=== PATIENT | female | born 1980 | race Two or more races ===

== ENCOUNTER 2020-02-06 22:26 | Emergency (ER) | payer SELFPAY ==
[~2020-02-06] VITALS: Ht 165.1 cm; Wt 65.0 kg
[2020-02-06] MEDS ORDERED: HYDROCODONE/ACETAMINOPHEN 10/325MG TABLET PO ONE (23:15)
[2020-02-07 04:28] VITALS: BP 121/81
== END 2020-02-07 04:32 | disposition home or self-care (01) ==
LOC: ER 22:26
DX: S93.401A Sprain of unspecified ligament of right ankle, initial encounter (principal); S80.02XA Contusion of left knee, initial encounter; S60.222A Contusion of left hand, initial encounter; S40.012A Contusion of left shoulder, initial encounter; Z88.2 Allergy status to sulfonamides; V49.88XA Car occupant (driver) (passenger) injured in other specified transport accidents, initial encounter; Y93.89 Activity, other specified; Y92.89 Other specified places as the place of occurrence of the external cause; Y99.8 Other external cause status
CPT/HCPCS: 73010; 73562; 73610; 73630; 99284

== ENCOUNTER 2022-01-23 17:41 | Emergency (ER) | payer MEDICAID, OTHER ==
[~2022-01-23] VITALS: Ht 165.1 cm; Wt 65.0 kg
[2022-01-23] MEDS ORDERED: DIPH25TA24 MT (20:47)
[2022-01-23] MEDS ORDERED: DIPHENHYDRAMINE 25MG CAPSULE PO ONE (21:00)
[2022-01-23] MEDS ORDERED: FAMOTIDINE 20MG TABLET PO ONE (21:00)
[2022-01-23 21:06] VITALS: BP 108/78
== END 2022-01-23 20:05 | disposition home or self-care (01) ==
LOC: ER 17:41
DX: L50.9 Urticaria, unspecified (principal); Z88.2 Allergy status to sulfonamides
CPT/HCPCS: 99283; Q0163